=== PATIENT | male | born 1950 | race Caucasian/White ===

== ENCOUNTER → 2024-07-22 07:48 | Outpatient (REF) | payer MEDICARE, OTHER, SELFPAY | LOC: RAD 07:48 | PROVIDERS: ATTENDING PHYSICIAN Registered Nurse | DX: Z87.891 Personal history of nicotine dependence (principal) | CPT/HCPCS: 71271 ==

== ENCOUNTER → 2025-09-01 07:04 | Outpatient (REF) | payer MEDICARE, OTHER, SELFPAY | LOC: RAD 07:04 | PROVIDERS: ATTENDING PHYSICIAN Registered Nurse | DX: Z87.891 Personal history of nicotine dependence (principal) | CPT/HCPCS: 71271 ==